=== PATIENT | female | born 1990 | race Caucasian/White ===

== ENCOUNTER 2020-01-13 12:39 | Emergency (ER) | payer SELFPAY ==
[~2020-01-13 12:39] MED LIST: Boostrix 0.5 ML VIAL ONE
== END 2020-01-13 13:08 | disposition home or self-care (01) ==
LOC: BURERS 12:39
DX: S91.331A Puncture wound without foreign body, right foot, initial encounter (principal); F17.210 Nicotine dependence, cigarettes, uncomplicated; Z23 Encounter for immunization; W45.0XXA Nail entering through skin, initial encounter
CPT/HCPCS: 90471; 90715